=== PATIENT | female | born 1970 | race Caucasian/White ===

== ENCOUNTER → 2023-10-02 00:56 | Outpatient (REF) | payer BC, SELFPAY ==
[2023-10-02 02:13] LABS: % Basophils 0.7 % (0-2); % Eosinophils 2.1 % (0-6); % Immature Granulocytes 0.2 % (0-0.5); % Lymphocytes 29.5 % (20.5-51.1); % Monocytes 5.9 % (1.7-9.3); % Neutrophils 61.6 % (42.2-75.2); Absolute Basophils 0.1 10^3/uL (0-0.2); Absolute Eosinophils 0.2 10^3/uL (0-0.7); Absolute Lymphocytes 2.5 10^3/uL (1.2-3.4); Absolute Monocytes 0.5 10^3/uL (0.1-0.6); Absolute Neutrophils 5.2 10^3/uL (1.4-6.5); Hematocrit 40.6 % (37.0-47.0); Hemoglobin 13.1 g/dL (12.0-16.0); Mean Corp Hgb Conc. 32.3 g/dL (33.0-37.0); Mean Corpuscular Hgb 24.7 pg (27.0-31.0); Mean Corpuscular Volume 76.5 fL (81.0-99.0); Mean Platelet Volume 9.9 fL (7.4-10.4); Nucleated Red Blood Cells % 0 %; Platelet Count 279 10^3/uL (130-400); Red Blood Cell Count 5.31 10^6/uL (4.20-5.40); White Blood Cell Count 8.5 10^3/uL (4.8-10.8)
[2023-10-02 02:53] LABS: ALT (SGPT) 21 U/L (0-35); AST (SGOT) 24 U/L (14-36); Albumin 4.7 g/dl (3.5-5.0); Alkaline Phosphatase 122 U/L (38-126); Blood Urea Nitrogen 19 mg/dl (7-17); Carbon Dioxide 24 mmol/L (22-30); Chloride 106 mmol/L (98-107); Glucose 101 mg/dl (70-99); HDL Cholesterol 61 mg/dl; Iron 36 ug/dl (37-170); LDL Cholesterol, Calculated 113 mg/dl; Potassium 4.4 mmol/L (3.5-5.1); Sodium 140 mmol/L (135-145); Total Bilirubin 0.5 mg/dl (0.2-1.3); Total Cholesterol 205 mg/dl (50-199); Total Protein 7.4 g/dl (6.3-8.2); Triglyceride 155 mg/dl (10-149); Very Low Density Lipoprotein 31 mg/dl (0-30); eGFR > 60.00
[2023-10-02 03:02] LABS: Percent Saturation 9 % (20-50); Total Iron Binding Capacity 382 ug/dl (265-497)
[2023-10-02 03:11] LABS: Free T4 1.01 ng/dl (0.78-2.19)
[2023-10-02 03:24] LABS: TSH 1.49 uIU/ml (0.47-4.68)
[2023-10-02 03:28] LABS: Ferritin 5.1 ng/ml (11.1-264.0)
[2023-10-02 03:38] LABS: Vitamin D, 25-OH*** 23.4 ng/mL (30-80)
[2023-10-02 04:00] LABS: Folate 9.5 ng/ml (2.76-20); Vitamin B12 241 pg/ml (239-931)
== END ==
LOC: REG 00:56
PROVIDERS: ATTENDING PHYSICIAN Nurse Practitioner Family
DX: C44.519 Basal cell carcinoma of skin of other part of trunk (principal); K58.2 Mixed irritable bowel syndrome; I10 Essential (primary) hypertension; D50.9 Iron deficiency anemia, unspecified; G43.901 Migraine, unspecified, not intractable, with status migrainosus; E78.2 Mixed hyperlipidemia; E55.9 Vitamin D deficiency, unspecified
CPT/HCPCS: 80053; 80061; 82306; 82607; 82728; 82746; 83540; 83550; 84439; 84443; 85025

== ENCOUNTER → 2023-11-14 02:09 | Outpatient (REF) | payer BC, SELFPAY ==
[2023-11-14 02:28] LABS: Erythrocyte Sed Rate 9 mm/hour (0-20)
[2023-11-14 02:31] LABS: % Basophils 0.9 % (0-2); % Eosinophils 1.5 % (0-6); % Immature Granulocytes 0.7 % (0-0.5); % Lymphocytes 18.7 % (20.5-51.1); % Monocytes 6.6 % (1.7-9.3); % Neutrophils 71.6 % (42.2-75.2); Absolute Basophils 0.1 10^3/uL (0-0.2); Absolute Eosinophils 0.1 10^3/uL (0-0.7); Absolute Immature Granulocytes 0.1 10^3/uL (0-0.05); Absolute Lymphocytes 1.4 10^3/uL (1.2-3.4); Absolute Monocytes 0.5 10^3/uL (0.1-0.6); Absolute Neutrophils 5.3 10^3/uL (1.4-6.5); Hematocrit 44.1 % (37.0-47.0); Hemoglobin 14.7 g/dL (12.0-16.0); Mean Corp Hgb Conc. 33.3 g/dL (33.0-37.0); Mean Corpuscular Hgb 26.4 pg (27.0-31.0); Mean Corpuscular Volume 79.3 fL (81.0-99.0); Mean Platelet Volume 10.6 fL (7.4-10.4); Nucleated Red Blood Cells % 0 %; Platelet Count 245 10^3/uL (130-400); Red Blood Cell Count 5.56 10^6/uL (4.20-5.40); Red Cell Dist. Width 18.9 % (11.5-14.5); White Blood Cell Count 7.4 10^3/uL (4.8-10.8)
[2023-11-14 02:35] LABS: ALT (SGPT) 24 U/L (0-35); AST (SGOT) 25 U/L (14-36); Albumin 4.5 g/dl (3.5-5.0); Alkaline Phosphatase 139 U/L (38-126); Blood Urea Nitrogen 12 mg/dl (7-17); Calcium 9.6 mg/dl (8.4-10.2); Carbon Dioxide 23 mmol/L (22-30); Chloride 106 mmol/L (98-107); Glucose 107 mg/dl (70-99); Potassium 4.2 mmol/L (3.5-5.1); Sodium 140 mmol/L (135-145); Total Bilirubin 0.5 mg/dl (0.2-1.3); Total Protein 7.2 g/dl (6.3-8.2); Urine Albumin Negative (Neg - Trace); Urine Bilirubin Negative (Negative); Urine Character Slightly Cloudy (Clear); Urine Color Yellow; Urine Glucose Negative (Negative); Urine Ketone Trace (Negative); Urine Leukocyte Trace (Negative); Urine Nitrite Negative (Negative); Urine Occult Blood Negative (Negative); Urine Specific Gravity 1.025 (<1.030); Urine Urobilinogen Negative (Neg - 1+); eGFR > 60.00
[2023-11-14 02:38] LABS: C-Reactive Protein < 5.00 mg/L (0.0-10.00)
[2023-11-14 02:40] LABS: Urine Protein < 5 mg/dl
[2023-11-14 02:47] LABS: Urine Bacteria Few (Negative); Urine Red Blood Cell 0-2 /HPF (0-2)
[2023-11-15 00:15] LABS: Complement C3 135 mg/dl (88-165)
[2023-11-15 14:21] LABS: Rheumatoid Agglutinin Positive (<10 IU)
[2023-11-15 14:47] LABS: Rheumatoid Agg. Semi-quant 1024 IU
[2023-11-16 01:00] LABS: ANA, IgG Reflex to HEp-2 None Detected (None Detected)
[2023-11-16 02:01] LABS: CCP Antibody IgG/IgA 3 Units (0-19)
[2023-11-16 11:37] LABS: SSA 52 (Ro)(ENA) Ab, IgG 2 AU/mL (0-40); SSA 60 (Ro)(ENA) Ab, IgG 0 AU/mL (0-40); SSB (La)(ENA) Ab, IgG 26 AU/mL (0-40)
== END ==
LOC: CLAB 02:09
PROVIDERS: ATTENDING PHYSICIAN Internal Medicine
DX: G50.0 Trigeminal neuralgia (principal); M35.00 Sjogren syndrome, unspecified; R76.8 Other specified abnormal immunological findings in serum; R90.82 White matter disease, unspecified
CPT/HCPCS: 80053; 81003; 81015; 82570; 84156; 85025; 85652; 86038; 86140; 86160; 86200; 86235; 86430; 86431

== ENCOUNTER → 2023-12-28 07:34 | Outpatient (REF) | payer BC, SELFPAY | LOC: MRI 3T 07:34 | PROVIDERS: ATTENDING PHYSICIAN Internal Medicine; FAMILY PHYSICIAN Internal Medicine | DX: R90.82 White matter disease, unspecified (principal) | CPT/HCPCS: 70553; A9575 ==

== ENCOUNTER → 2024-06-23 01:12 | Outpatient (REF) | payer BC, SELFPAY ==
[2024-06-23 01:28] LABS: % Basophils 0.7 % (0-2); % Eosinophils 1.7 % (0-6); % Immature Granulocytes 0.7 % (0-0.5); % Monocytes 5.5 % (1.7-9.3); % Neutrophils 71.4 % (42.2-75.2); Absolute Basophils 0.1 10^3/uL (0-0.2); Absolute Eosinophils 0.1 10^3/uL (0-0.7); Absolute Immature Granulocytes 0.1 10^3/uL (0-0.05); Absolute Lymphocytes 1.7 10^3/uL (1.2-3.4); Absolute Monocytes 0.5 10^3/uL (0.1-0.6); Hematocrit 45.9 % (37.0-47.0); Hemoglobin 14.7 g/dL (12.0-16.0); Mean Corpuscular Hgb 26.9 pg (27.0-31.0); Mean Corpuscular Volume 83.9 fL (81.0-99.0); Mean Platelet Volume 9.3 fL (7.4-10.4); Nucleated Red Blood Cells % 0 %; Platelet Count 244 10^3/uL (130-400); Red Blood Cell Count 5.47 10^6/uL (4.20-5.40); Red Cell Dist. Width 15.8 % (11.5-14.5); White Blood Cell Count 8.4 10^3/uL (4.8-10.8)
[2024-06-23 01:47] LABS: Erythrocyte Sed Rate 10 mm/hour (0-20)
[2024-06-23 01:56] LABS: ALT (SGPT) 21 U/L (0-35); AST (SGOT) 21 U/L (14-36); Albumin 4.9 g/dl (3.5-5.0); Alkaline Phosphatase 118 U/L (38-126); Blood Urea Nitrogen 18 mg/dl (7-17); Carbon Dioxide 26 mmol/L (22-30); Chloride 104 mmol/L (98-107); Glucose 112 mg/dl (70-99); HDL Cholesterol 57 mg/dl; LDL Cholesterol, Calculated 103 mg/dl; Potassium 4.8 mmol/L (3.5-5.1); Sodium 140 mmol/L (135-145); Total Bilirubin 0.8 mg/dl (0.2-1.3); Total Cholesterol 189 mg/dl (50-199); Total Protein 7.5 g/dl (6.3-8.2); Triglyceride 147 mg/dl (10-149); Very Low Density Lipoprotein 29 mg/dl (0-30); eGFR > 60.00
[2024-06-23 01:57] LABS: C-Reactive Protein < 5.00 mg/L (0.0-10.00)
[2024-06-23 02:01] LABS: Complement C3 133 mg/dl (88-165)
[2024-06-23 02:28] LABS: Urine Albumin 1+ (Neg - Trace); Urine Bilirubin Negative (Negative); Urine Character Slightly Cloudy (Clear); Urine Color Yellow; Urine Glucose Negative (Negative); Urine Ketone Negative (Negative); Urine Leukocyte 3+ (Negative); Urine Nitrite Negative (Negative); Urine Occult Blood Negative (Negative); Urine Specific Gravity 1.025 (<1.030); Urine Urobilinogen Negative (Neg - 1+)
[2024-06-23 02:28] LABS: TSH Reflex To Free T4 1.36 uIU/ml (0.47-4.68)
[2024-06-23 03:17] LABS: Urine Red Blood Cell 0-2 /HPF (0-2)
[2024-06-23 03:57] LABS: Urine Protein < 5 mg/dl
[2024-06-23 09:28] LABS: Vitamin D, 25-OH*** 18.9 ng/mL (30-80)
== END ==
LOC: REG 01:12
PROVIDERS: ATTENDING PHYSICIAN Internal Medicine
DX: M06.4 Inflammatory polyarthropathy (principal); Z51.81 Encounter for therapeutic drug level monitoring; M35.00 Sjogren syndrome, unspecified; M32.9 Systemic lupus erythematosus, unspecified
CPT/HCPCS: 80053; 80061; 81003; 81015; 82306; 82570; 84156; 84443; 85025; 85652; 86140; 86160; 87086

== ENCOUNTER 2024-09-17 10:03 | Inpatient (IN) | payer BC, SELFPAY ==
[2024-09-16 17:56] VITALS: BP 176/90
--- NOTE | 2024-09-16 19:25 | ED.GENMED ---
History of Present Illness
General
Chief Complaint: Eye Problems
Source: patient
Exam Limitations: none
Time Seen by Provider: 09/16/24 19:11
History of Present Illness
History of Present Illness:
See MDM
Past History
Past History
ED Past Medical History: None
ED Past Surgical History: Appendectomy and Gynecological (2 lump-ectomy)
Social History
Tobacco: Non-smoker
Alcohol: None
Drug: None
Employment: Employed
Phy Exam
Physical Exam
Physical Exam:
See MDM
Course
Orders/Labs/Results
Orders:
Orders
09/16/24 Dinner
Regular
At Your Request: Full Participation
09/16/24 19:22
CT Head W/o Iv Contrast Urgent
Comment:
Reason For Exam: headache, left eye pain
09/16/24 19:28
Visual Acuity- Treatment ONCE
09/16/24 19:59
CRP [C-Reactive Protein] Urgent
Complete Blood Count/With Diff Urgent
Comprehensive Metabolic Panel Urgent
ESR [Erythrocyte Sed Rate] Urgent
09/16/24 21:14
MethylPREDNISolone. [Solu-Medrol] 1,000 mg 0.9% Sodium Chloride 250 ml [Nss] 250 ml IV NOW
09/16/24 22:00
Flush (0.9% Sodium Chloride) [Flush (Nss)] See Dose Instructions IV PER PROTOCOL
09/16/24 22:13
Admit/Transfer Patient As Directed
Co-Sign Provider:
Level of Care: Observation services
Assign to:: Medical/Surgical
Physician / Group: [facility]
Diagnosis: Left eye blurriness
PRN Pain Medication Management As Directed
May give lesser potent ordered pain med per pt: Yes
preference::
Protocol:: Medication orders for pain may be administered in a
manner that supports deferring to patient preference
when the pt is:
- Requesting an ordered lesser potent pain medication.
Least to most potent pain medications are defined
as: acetaminophen < NSAID < tramadol < opioids
(morphine, oxycodone, hydromorphone).
- Requesting a lesser dose of the same medication IF
ORDERED.
- Requesting a less intrusive route of administration
if both routes are prescribed by the provider (PO <
IV).
09/16/24 22:14
Code Status As Directed
Resuscitation Status: Full Code
09/16/24 23:29
Acetaminophen [Tylenol] 650 mg PO Q4HPRN PRN
Bisacodyl [Dulcolax] 10 mg RECTAL [id number] PRN
Docusate W/Senna [Senokot-S] 1 tablet PO BIDPRN PRN
Ondansetron Injectable [Zofran] 4 mg IV Q6HPRN PRN
Polyethylene Glycol Powder [Miralax] 17 grams PO DAILYPRN PRN
09/16/24 23:29
NEUROLOGY CONSULT Routine
Consulting Provider: Ej Bustillo
Was physician already notified: Yes
Activity As Directed
Activity Level: As Tolerated
Neurological Checks As Directed
Frequency: q4h
Pneumatic Compression Sleeves As Directed
Type: Knee high
Vital Signs As Directed
Frequency: Per unit guidelines
Pulse Ox/spot Check [RESP] Routine
Quantity: 1
DX Deep Vein Thrombosis Video Routine
09/17/24 06:51
MR Brain W/o & With Contrast Routine
Reason For Exam: eval optic neuritis, ms
Recent pill cam endoscopy?: No
09/17/24 06:54
Basic Metabolic Panel IN AM
Complete Blood Count/No Diff IN AM
Ferritin Routine
Comment: ADD ON
Folate Routine
Comment: ADD ON
Free T4 Routine
Iron Routine
Comment: ADD ON
Magnesium IN AM
TSH Reflex To Free T4 Routine
Comment: ADD ON
Total Iron Binding Routine
Comment: ADD ON
Vitamin B12 Routine
Comment: ADD ON
09/17/24 07:05
Add On- LAB Routine
Tests Added?: iron, TIBC, ferrtin
09/17/24 07:13
Cervical Spine Without & W [MR Cervical Spine Without & W] Routine
Comment:
Reason For Exam: vision changes, Hx of possible MS
Recent pill cam endoscopy?: No
09/17/24 09:17
Lorazepam [Ativan] 1 mg PO ONCE
09/17/24 09:24
Add On- LAB Routine
Comments:: Please add to today's labs or draw as routine
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
09/17/24 10:00
Ergocalciferol [Drisdol (Vitamin D2)] 50,000 units PO Q7D
09/17/24 10:30
Cholecalciferol (Vitamin D3) [VITAMIN D3 (cholecalciferol)] 125 mcg PO DAILY
09/17/24 11:00
Cyanocobalamin [Vitamin B-12] 1,000 mcg PO DAILY
MethylPREDNISolone. [Solu-Medrol] 1,000 mg 0.9% Sodium Chloride 250 ml [Nss] 250 ml IV Q24H
09/17/24 16:00
Gabapentin [Neurontin] 300 mg PO TID
Abnormal Lab Results
09/16/24 09/17/24
19:59 06:54
MCV 79.6 L fL 80.0 L fL
(81.0-99.0) (81.0-99.0)
MCH 25.2 L pg 25.3 L pg
(27.0-31.0) (27.0-31.0)
MCHC 31.6 L g/dL 31.6 L g/dL
(33.0-37.0) (33.0-37.0)
Lymphocytes % 18.9 L %
(20.5-51.1)
Chloride 110 H mmol/L 111 H mmol/L
(98-107) (98-107)
Glucose 108 H mg/dl 196 H mg/dl
(70-99) (70-99)
Iron 26 L ug/dl
(37-170)
% Saturation 6 L %
(20-50)
Ferritin 6.2 L ng/ml
(11.1-264.0)
TSH (Reflex) 0.33 L uIU/ml
(0.47-4.68)
09/17/24 06:54
09/17/24 06:54
Vital Signs
Initial and Last Documented VS:
Initial Vital Signs
Temp Pulse Resp BP Pulse Ox
97.9 F 103 16 176/90 100
09/16/24 17:56 09/16/24 17:56 09/16/24 17:56 09/16/24 17:56 09/16/24 17:56
Last Documented Vital Signs
Temp Pulse Resp BP Pulse Ox
98 F 85 20 145/77 96
09/18/24 23:43 09/18/24 23:43 09/18/24 23:43 09/18/24 23:43 09/18/24 23:43
MDM/Problems Addressed
Differential Diagnosis Includes:
HPI and MDM Narrative:
54-year-old female presenting for evaluation of left eye irritation. She noticed this a few days ago. This is associated with left temporal pain as well. She has dealt with migraines and right religious pain before but this was attributed to
trigeminal neuralgia. Patient was concerned because she is now noticing that her left eye is dilated. She was having trouble focusing while reading.
Patient is sitting in bed comfortably but she does have an obvious dilated pupil to the left. She also has mild tenderness to her left religious area.
I did question MS but patient states she saw an MS specialist and her symptoms were dismissed. However, she does acknowledge this was many years ago. Since this, she has had multiple bizarre neuro complaints.
She has had prior MRIs showing nonspecific findings
On exam, she does have an afferent pupillary defect to the left.
Will obtain ESR and CRP and obtain CT.
Physical exam
General: Well appearing and non-toxic
HEENT: protecting airway. Right pupil 2 mm. Left pupil 5 mm. EOMI. No proptosis. Afferent pupillary defect noted to the left. Mild tenderness to palpation of left religious
Neck: appears supple
CV: No evidence of cyanosis
Resp: No accessory muscle use
Abd: Non-distended
Extremities: No deformities
Neuro: alert
Psych: Normal affect
Skin: Intact
Problems Addressed including Acute and Chronic Conditions affecting care:
1. Left eye irritation
Acuity: acute
Prognosis: stable
Details: No complaint, will obtain CT head. Will obtain visual acuity and will obtain ESR and CRP. Will consider high-dose of steroids with concern for MS versus temporal arteritis
Updates
Per nursing, bilateral vision 20/75. Right eye 20/25. Left eye 20/60
ESR and CRP negative which makes temporal arteritis less likely. Given concern for optic neuritis and possible MS, will write for 1 g of IV methylprednisone
Differential Diagnosis (but not limited to): Temporal arteritis, MS, optic neuritis
Testing considered: MR
Drug therapy (if applicable): OTC meds, please see d/c instruction regarding Rx drugs
Amount and/or Complexity of Data Reviewed
Clinical info obtained from: Patient
External data reviewed: MRI last year showed nonspecific finding
Labs I independently reviewed (but not limited to): White blood cell count normal
Radiology: The CT scan was personally and independently reviewed. In addition, official CT report reviewed.
Pulse Ox: not hypoxic
EKG independently reviewed: N/A
Director Of District Office: N/A
Critical Care: N/A
Risk of Complication:
Social Determinants of health: Good social support
Discussed with other providers: Hospitalist
Escalation of Care includes Admit/Obs: Given the concern for optic neuritis, will admit for high-dose IV steroid
Occasional wrong word or 'sound a like' substitutions may have occurred due to the inherent limitations of voice recognition software. Read the chart carefully and recognize, using context, where substitutions have occurred.
*Critical Care Note
Total Time (30-74mins, 75-104mins- exclusive of procedures): Not Applicable
ED Attending Note
-
Portions of this chart may have been created with voice recognition software.� Occasional wrong word or��sound alike� substitutions may have occurred due to the inherent limitations of voice recognition software.
Discharge Plan
Departure
Patient Disposition: Admit
Date of Disposition: 09/16/24
Time of Disposition: 21:11
Admit to: Med/Surg
Presentation/result/management discussed w/ accepting MD/DO: Hospitalist
Discharge Problem:
Optic neuritis, left
Interventions
Interventions:
*Risk Screen - Suicide Last Done: 09/16/24 17:59
*General Assessment Last Done: 09/16/24 19:55
*Neglect/Abuse Screening Last Done: 09/16/24 17:59
*ED- Fall Risk Assessment Last Done: 09/16/24 19:55
*ED COVID-19 Vaccine History Last Done: 09/16/24 19:55
*Nursing Disposition Last Done: 09/16/24 23:25
Discharge Date and Time
Discharge Date/Time: 09/16/24 23:25
[2024-09-16 19:39] VITALS: BMI 33.5
[2024-09-16 20:07] VITALS: BP 143/74
[2024-09-16 20:20] LABS: % Basophils 1.1 % (0-2); % Eosinophils 1.6 % (0-6); % Immature Granulocytes 0.5 % (0-0.5); % Lymphocytes 18.9 % (20.5-51.1); % Monocytes 6.9 % (1.7-9.3); Absolute Basophils 0.1 10^3/uL (0-0.2); Absolute Eosinophils 0.1 10^3/uL (0-0.7); Absolute Lymphocytes 1.2 10^3/uL (1.2-3.4); Absolute Monocytes 0.4 10^3/uL (0.1-0.6); Absolute Neutrophils 4.4 10^3/uL (1.4-6.5); Hematocrit 38.3 % (37.0-47.0); Hemoglobin 12.1 g/dL (12.0-16.0); Mean Corp Hgb Conc. 31.6 g/dL (33.0-37.0); Mean Corpuscular Hgb 25.2 pg (27.0-31.0); Mean Corpuscular Volume 79.6 fL (81.0-99.0); Mean Platelet Volume 9.8 fL (7.4-10.4); Nucleated Red Blood Cells % 0 %; Platelet Count 289 10^3/uL (130-400); Red Blood Cell Count 4.81 10^6/uL (4.20-5.40); Red Cell Dist. Width 13.8 % (11.5-14.5); White Blood Cell Count 6.2 10^3/uL (4.8-10.8)
[2024-09-16 20:32] LABS: ALT (SGPT) 15 U/L (0-35); AST (SGOT) 17 U/L (14-36); Albumin 4.7 g/dl (3.5-5.0); Alkaline Phosphatase 99 U/L (38-126); Blood Urea Nitrogen 13 mg/dl (7-17); Calcium 9.5 mg/dl (8.4-10.2); Carbon Dioxide 24 mmol/L (22-30); Chloride 110 mmol/L (98-107); Estimated Creatinine Clearance 72 ml/min; Glucose 108 mg/dl (70-99); Potassium 4.8 mmol/L (3.5-5.1); Sodium 140 mmol/L (135-145); Total Bilirubin 0.5 mg/dl (0.2-1.3); Total Protein 7.3 g/dl (6.3-8.2); eGFR > 60.00
[2024-09-16 20:35] LABS: Erythrocyte Sed Rate 16 mm/hour (0-20)
[2024-09-16 21:00] VITALS: BP 143/74
[2024-09-16 22:00] VITALS: BP 142/71
--- NOTE | 2024-09-16 22:06 | HPS.HSE ---
Family Physician
-
Family Physician: Zahra Palencia
Chief Complaint
-
Left eye blurriness and pain
History of Present Illness
This is a 51-year-old who presents to the emergency department with left eye symptoms.
She said the symptoms started actually about 4 days ago. She arose and noted some pain behind the left eye. She also saw that pupils were asymmetrical in dilation. When she tried to read screen she had some blurry vision as well as some double
vision. The symptoms persisted over the last few days. She denies any focal neurological deficits. She denies facial asymmetry, facial droop, numbness tingling or weakness.
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 She has no prior history of MS. She denied history of CAD or CVA. She denies any history of hyperlipidemia.
In the emergency department she was afebrile, blood pressure of 140/70 with a pulse of 103 and she was satting 98% on room air.
CBC was unremarkable stop electrolytes BUN/creatinine were normal. ESR was negative.
CT of the head shows no acute intracranial process.
Medical History
Past Medical History
Past Medical History: Reports Other (Trigeminal neuralgia)
Past Surgical History: Reports Other (Exploratory laparotomy)
Social History
Tobacco: Non-smoker
Alcohol: Occasional
Drug: None
Personal:
Living: With Family
Employment: Employed
Family History
Family History: Not pertinent
Allergies / Home Medications
Allergies reflects when Allergies were last updated in [employer].
Home Medications with original date entered in [employer]
Allergy/Medication List:
Allergies
Allergy/AdvReac Type Severity Reaction Status Date / Time
No Known Allergies Allergy Verified 03/22/21 02:30
Home Medications
meclizine 25 mg tablet 25 mg PO QIDPRN PRN dizziness or nausea #30 tabs 03/22/21
Review of Systems
-
Constitutional: Reports No Symptoms
EENT: Reports Other (blurry vision, left eye pain)
Respiratory: Reports No Symptoms
Cardiac: Reports No Symptoms
Abdomen/GI: Reports No Symptoms
: Reports No Symptoms
Musculoskeletal: Reports No Symptoms
Skin: Reports No Symptoms
Neurological: Reports No Symptoms
Endocrine: Reports No Symptoms
Hematologic/Lymphatic: Reports No Symptoms
Psych: Reports No Symptoms
Physical Exam
Vital Signs
Vital Signs
Temp Pulse Resp BP Pulse Ox
97.9 F 103 16 143/74 97
09/16/24 17:56 09/16/24 17:56 09/16/24 17:56 09/16/24 20:07 09/16/24 20:30
Physical Exam
General: Well Developed, Well Nourished and No Apparent Distress
HEENT: NormoCephalic, Moist mucous membranes, Atraumatic and Other (Asymmetrical pupillary dilation, left eye markedly dilated relative to the right, there is reaction bilaterally equally but reduced constriction in the left eye to light)
Respiratory: Clear
Cardiac: S1/S2 and Regular Rhythm; No Murmur or Rub
GI: Soft, Non Tender, Non Distended and Normal Bowel Sounds; No Organomegaly
Rectal: Deferred by Provider
Musculoskeletal: No Clubbing, No Cyanosis and No Edema
Skin: No Rash
Neuro: Nonfocal/grossly intact
Laboratory Results
-
09/16/24 19:59
09/16/24 19:59
Laboratory Results
Total Bilirubin 0.5 mg/dl (0.2-1.3) 09/16/24 19:59
AST 17 U/L (14-36) 09/16/24 19:59
ALT 15 U/L (0-35) 09/16/24 19:59
Alkaline Phosphatase 99 U/L (38-126) 05/27/25 19:59
Data Reviewed
-
CT Scan: Report Reviewed by me
Lab Data: Labs Reviewed by me
Old Records: Reviewed
Impression/Plan
-
IMPRESSION:
51-year-old female with past medical history of trigeminal neuralgia on the right V1 V2 distribution presents to the emergency department with left eye pain, blurriness and found to have left eye pupillary dilation without any conjunctivitis,
foreign body sensation, tearing or signs of acute infection. Patient has no periorbital edema. CT of the head was negative. She has history of elevated RF but no specific rheumatological diagnosis yet.
PLAN:
1. Left Eye Pain and visual loss -no evidence of acute stroke, ESR is negative so unlikely temporal arteritis, possible MS/optic neuritis
-Admit to MedSurg
-MRI brain with gadolinium
-MRI C-spine
- Inflammatory markers neurology
- 1 g IV Solu-Medrol started, repeated dosing prior findings on MRI and neurology recommendation
- Possible LP per neurology
- Pain control
- Neurochecks every 8
DVT prophylaxis with SCDs
CODE STATUS�full code
[2024-09-16] MEDS: SOLU-MEDROL 258 MG IV (22:10)
[2024-09-16] MEDS: FLUSH (NSS) 1 FLUSH IV (22:11)
[2024-09-16 23:00] VITALS: BP 140/80
--- NOTE | 2024-09-16 23:45 | PTCARENOTE ---
Pt recieved from ED via stretcher at 2345. Pt AAOx3, VSS, and able to ambulate into room. Pt receptive to room and call jenkins. Pt bed in lowest position and call jenkins within reach. pt educated on importance of call jenkins usage, pt relays understanding
and cooperation. Pt complains of mild 3/1o pressure pain in her Left eye. Refused pain medications at this time. Will continue with current plan of care.
[2024-09-16 23:52] VITALS: BP 138/81; BMI 33.0
[2024-09-17 07:25] VITALS: BP 143/77
[2024-09-17 07:28] LABS: Hematocrit 39.9 % (37.0-47.0); Hemoglobin 12.6 g/dL (12.0-16.0); Mean Corp Hgb Conc. 31.6 g/dL (33.0-37.0); Mean Corpuscular Hgb 25.3 pg (27.0-31.0); Mean Platelet Volume 10.1 fL (7.4-10.4); Platelet Count 283 10^3/uL (130-400); Red Blood Cell Count 4.99 10^6/uL (4.20-5.40); Red Cell Dist. Width 13.8 % (11.5-14.5); White Blood Cell Count 6.9 10^3/uL (4.8-10.8)
[2024-09-17 07:57] LABS: Blood Urea Nitrogen 12 mg/dl (7-17); Calcium 9.6 mg/dl (8.4-10.2); Carbon Dioxide 22 mmol/L (22-30); Chloride 111 mmol/L (98-107); Estimated Creatinine Clearance 81 ml/min; Glucose 196 mg/dl (70-99); Iron 26 ug/dl (37-170); Potassium 4.5 mmol/L (3.5-5.1); Sodium 140 mmol/L (135-145); eGFR > 60.00
[2024-09-17 08:05] LABS: Percent Saturation 6 % (20-50); Total Iron Binding Capacity 384 ug/dl (265-497)
--- NOTE | 2024-09-17 08:27 | CON.NEURO ---
Neuro Assessment/Plan
Assessment
Acute onset left eye visual change
With prior history of mild MRI changes of the brain and intractable migraine. Differential diagnosis includes optic neuritis
Plan
Outpatient ophthalmology evaluation
Agree with MRI of brain and cervical spine with and without contrast
Provide additional high dose steroids, methylprednisolone 1 g IV based on future imaging, either 3 or 5 total doses; monitor for hypertension and hyperglycemia
Start vitamin D as the patient had low levels previously.
Start vitamin B12 as the patient had low levels previously
Check antibodies for neuromyelitis optica spectrum disorder and MOGAD
Occupational therapy evaluation
Consider alternative medication to the use of gabapentin which is been helpful for the patient's recurrent head pains in the form of pregabalin
Will follow
Consultation
Order
Date of Consultation: 09/17/24
Requesting Provider: Hospitalists
Reason for Consult: Visual loss
Subjective/Objective
Subjective Data
Date of Service: September 17, 2024
Adapted from our outpatient records:
' 51-year-old female presents for evaluation for right head pressure. She was referred by Dr. Ewing. She states that she began having right temporal head pressure that has moved anteriorly over time. She states that 'it feels like very severe
pressure that is so bad it could break her nose.' She denies associated vomiting or photophobia but has associated phonophobia and nausea. She also complains of visual aura consisting of 'flickering in her right eye.' She also feels that her speech
slows down during these events and she feels that 'she sounds like she is drunk.' The head pressure is about a 6 out of 10 in terms of severity. She has these events every day and they can last all day. It is worse while driving. She has no family
history of migraine or cerebral aneurysm. She has taken a steroid Dosepak without good results. She takes Motrin as an abortive therapy and has tried a dose of her 's Maxalt medication which was not helpful. She has no prior history of
headache. These events were preceded by an episode of head trauma. She was standing on a parking block when she fell backwards and hit the back of her head and may have lost consciousness. She states that she has also been worked up for dizziness
and imbalance. She is seen to ENT specialist and also did vestibular therapy without good results. She describes this as feeling that 'everything is on a tilt and she feels as if there is a hand on her head pushing her down.'
She had a head CT done on March 22, 2021 which showed no acute intracranial process and was within the limits of normal. She was seen for dizziness in the [place] emergency department on that date. She had an MRI of the brain done with
and without contrast on May 10, 2021 which was read as normal. A 5 mm focus of T2/FLAIR hyperintense signal was seen in the white matter adjacent to the right frontal horn that was felt to be of doubtful clinical significance.
Evaluations with Irma Dan:
'(06/15/2021)
Pt seen today in the office. Pt reports that she tried Ubrelvy and was not helpful. She also reports she tried Nurtec which was very helpful. She had no adverse side effects from medication. She feels that although it works she still is
having daily headaches. She states that the Nurtec helps both the dizziness and pressure. We have not yet received records from ENT.
(08/31/2021)
Pt seen in the office today. Pt reports she still has significant daily headaches and is taking Compazine, Benaryl and Motrin mulitple times a day. She reports Nurtec is not helping her. She was trying to take it every other day. She has no
new symptoms. She continues to have right sided head pressure.
(11/02/2021)
Pt seen in the office today. Pt reports very mild improvement of headaches since starting Emgality. She has now had loading dose and 1 additional dose. She feels ok. to continue at this time, she knows it can take up to 3 doses to have
improvement.'
11/30/21: She continues to have daily head pressure with visual aura despite trying several medications including Emgality, Nurtec every other day and riboflavin as migraine preventatives. A steroid Dosepak was not helpful. She is also tried
Ubrelvy as abortive therapy which was not helpful. She is interested in trying Botox. She is due for a follow-up MRI brain as well.
(01/04/2022)
Patient seen in the office today with her . Patient reports she still has unchanged right daily head pressure, severe at times. Reports 'she feels if her nose would break pressure might resolve.' Reyvow was not helpful as it caused
muscle aches. She did not do the IV infusion. We are waiting for approval for Botox. She did have MRI of the brain completed on 12/28/2021 that showed nonspecific mild white matter signal alteration. These are more prominent than previously noted.
Today (03/21/2022)
Patient seen in the office today. Patient did receive her first dose of Botox. She had no adverse side effects of medication. She does report her headaches are at least 10% better. She reports there were days that she did nto need to take
breaker medications. She does not remember before Botox the last days she did not need medication for headaches. She continues to take Riboflavin. She continues to use Benadryl, Compazine and Motrin as headache breakers.
Assessments
1. Intractable migraine with aura with status migrainosus - G43.111 (Primary)
2. Balance problem - R26.89
3. White matter abnormality on MRI of brain - R90.82
4. History of traumatic head injury - Z87.828
51-year-old female with a pressure-like headache with some migrainous features with status migrainosus. She does have a single white matter abnormality that I think may be related to migraine or her head trauma and I think is much less likely to be
related to something like demyelinating disease, but we will repeat her imaging 6 mos from the initial imaging to evaluate for stability.
Treatment
1. Intractable migraine with aura with status migrainosus
Notes: -Has already tried several meds without good results including: Medrol dose pack, Emgality, Nurtec every other day, Ubrelvy and riboflavin
-can continue Compazine, Motrin and Benadryl as headache breakers, although these are not always helpful
-avoiding any triptan as this may increase her blood pressure and she has a relatively new dx of htn
-Reyvow caused muscle aches only minimal improvement of headaches
-Continue Botox for migraine prevention given lack of efficacy of several other meds
-abnormal MRI brain with more prominent white matter changes-still needs f/u with subspecialist Dr. Faustin--[phone].
2. Balance problem
Notes: -already tried vestibular PT
3. White matter abnormality on MRI of brain
Notes: -previously reviewed MRI brain images
-still need follow up with Dr. Faustin
Follow Up
as scheduled'
Patient underwent botulinum toxin injections until 2022 at which time she was lost to follow-up. As per records, the patient underwent a repeated MRI of the brain in December 2023. MRI of the brain at that time demonstrated small white matter
changes which were not associated with significant variation from the 2 years prior. The patient has been following with rheumatology due to concerns regarding an abnormal NADJA.
Patient returned to this hospital's emergency department after sudden left eye irritation starting 4 days prior to presentation. Patient then noted that she had pain in the back of the eye with reading 1 day later.
Since presentation to this hospital's emergency department, the patient received a single dose of methylprednisolone 1 g IV. Continued discomfort with reading since steroid injections. No loss of vision. [facility] in ED 20/25 on right, left 20/60.
Patient had no change to headaches with Botulinum toxin injections. Met with ENT who ordered RF then to Rheumatology. Then started Gabapentin 300 mg TID, given dx of possible Sjogren's disease. Gabapentin reduces the discomfort to intensity 2/10,
without 7/10, pressure-type.
Was started on Hydroxychloroquine 1 month ago. Was seen by neuro-beading sawyer in 2023 due to right retro-orbital pain previously. No abnormalities.
Objective Data
Vital Signs
Temp Pulse Resp BP Pulse Ox
36.6 C 78 16 143/77 97
09/17/24 07:25 09/17/24 07:25 09/17/24 07:25 09/17/24 07:25 09/17/24 07:25
Lab Results
09/17/24 06:54
09/17/24 06:54
Sodium 140 mmol/L (135-145) 09/17/24 06:54
Potassium 4.5 mmol/L (3.5-5.1) 09/17/24 06:54
BUN 12 mg/dl (7-17) 09/17/24 06:54
Glucose 196 mg/dl (70-99) H 09/17/24 06:54
Calcium 9.6 mg/dl (8.4-10.2) 09/17/24 06:54
Patient Allergies
No Known Allergies Allergy (Verified 03/22/21 02:30)
Review of Systems
-
History Source: Patient
All other systems: Reviewed and negative
EENT: Negative Swallowing Difficulty
Respiratory: Negative Trouble Breathing
Cardiac: Negative Chest Pain
Abdomen/GI: Negative Incontinence of Stool
Genitourinary: Negative Incontinence
Musculoskeletal: Negative Back Pain or Neck Pain
Neuro: Negative Dizzy
Physical Exam
-
General: No Apparent Distress and Appears Stated Age
Eyes: Round OU, [place] Conjunctivae and No Ptosis
HEENT: Anicteric and Moist Mucous Membranes
Neck: Full Range of Motion
Respiratory: No Dyspnea
Cardiac: No JVD
GI: Non-distended
Skin: Unremarkable
Extremities: No Clubbing, No Cyanosis and No Edema
Psych: Intact Judgement/Insight
Extended Neurological Exam
Mood & Affect: Mood Unremarkable and Affect Unremarkable
Attention Span & Concentration: Awake, Alert, Interactive and No Difficulty with 2 Step Request
Memory: Unremarkable
Tremor: Hand Tremor Absent and Head Tremor Absent
Speech: Quality Unremarkable and Quantity Unremarkable
Cranial Nerve II: Left Eye: Pupillary Reactivity Unremarkable, Pupillary Size Unremarkable and Visual Ramirez Intact
Cranial Nerve II: Right Eye: Pupillary Reactivity Unremarkable, Pupillary Size Unremarkable, Visual Ramirez Intact and Smaller than Contralateral (By 1 mm)
Cranial Nerves III, IV, : Extraocular Movement: Extraocular Movement Full in all Directions
Cranial Nerve VII: Facial Symmetry: Normal Facial Symmetry
Cranial Nerve VIII: Hearing: Unremarkable Hearing to Normal Conversational Volume
Cranial Nerves IX, X: Palate Movement: Palate Elevation Symmetric
Cranial Nerve XI: Shoulder Shrug: Unremarkable
Cranial Nerve XII: Tongue Protusion: Midline
Muscle Strength, Overall: Full Throughout
Muscle Bulk & Tone: Bulk Unremarkable and Tone Unremarkable
Pronator Drift: No Drift in Upper Extremities
Deep Tendon Reflexes: Trace Throughout
Touch Sensation: Unremarkable
Coordination: Idlepf-ooci-bcazzk Testing Unremarkable
Babinski Sign: Absent Bilaterally
Gait & Station: Negative Wide Based
Data Reviewed
-
Labs: Report Reviewed
Reviewed with: Physician, Patient and Family
Old Records: Summarized
Medications
-
Active Medications
Generic Name Dose Route Start Last Admin
Trade Name Freq PRN Reason Stop Dose Admin
Acetaminophen 650 mg 09/16/24 23:29
Acetaminophen 325 Mg Tablet PO 10/14/24 23:28
Q4HPRN PRN
mild pain/PERKINS/temp> 100.4F
Bisacodyl 10 mg 09/16/24 23:29
Bisacodyl 10 Mg Rectal Suppository RECTAL 10/14/24 23:28
[id number] PRN
constipation
Ondansetron HCl 4 mg 09/16/24 23:29
Ondansetron 4 Mg/2 Ml Vial IV 10/14/24 23:28
Q6HPRN PRN
nausea and vomiting
Polyethylene Glycol 17 grams 09/16/24 23:29
Polyethylene Glycol Powder 17 Grams Packet PO 10/14/24 23:28
DAILYPRN PRN
constipation
Senna/Docusate Sodium 1 tablet 09/16/24 23:29
Docusate W/Senna (Melyssa-Colace) Tablet PO 10/14/24 23:28
BIDPRN PRN
constipation
Sodium Chloride 0 flush 09/16/24 22:00 09/16/24 22:11
Sodium Chloride 0.9% (Flush) Syringe IV 10/14/24 21:59 1 flush
PER PROTOCOL RACHEL Administration
Home Medications
�Medication �Instructions �Recorded
meclizine 25 mg tablet 25 mg PO QIDPRN PRN dizziness or 03/22/21
nausea #30 tabs
--- NOTE | 2024-09-17 10:02 | W.PN.HOSP.TC ---
Today's Communication/Plan
-
See PN
Assessment / Plan
Assessment / Plan
54yo F with PMHX of headaches, that became constant after her head trauma when she fell backwards and hit her head years back. Since then she experienced constant sometimes severe pain over her temporal area radiating to her nose. She was diagnosed
with trigeminal neuralgia and started on Neurontin that was able to take the edge off the pain. She was followed by outpatient neurologist and had multiple botox injections due to concern for migraine, but without relief. Also saw
in [facility] for concerns of MS since her prior MRI brain showed some non-specific mild white matter changes. Patient also follows with control clerk for suspected Sjogrens and was started on HCQ on July 25 2024.
She started to experience blurry vision and pain with accomodation in her L eye appr 4 days before her presentation and on the day of admission noticed that her L pupil was larger. Given Methylprednisolone 1g in ED.
A/P:
#Anisocoria with blurry vision on R
#R/O MS flare, optic neuritis
#Intractabel migraine with status migranosus
Will arrange outpatient ophthalmology follow up
ESR/CRP WNL
Can be side effect of HCQ - will discuss with control clerk if safe to stop, retinal exam upon d/c
Pulse steroids
MRI brain and cervical spine as per neurologist
f/u with subspecialist Dr. Faustin--[phone]
#Hx of vit D deficiency
#Hx of vit B12 deficiency
replete
#Sjogrens
on recent new HCQ
cont outpatient f/u with
#Microcytosis
check iron studies
DVT ppx on hep
Full code
I have spent at least 59min reviewing chart, test results, communication with consultants and providing direct patient care
Anticipated Discharge: 24 - 48 hours
Subjective/Interval History
-
Date of Service: September 17, 2024
Objective Data
-
Labs:
Laboratory Results
09/17/24
06:54
WBC 6.9
Hgb 12.6
Hct 39.9
Plt Count 283
Sodium 140
Potassium 4.5
Chloride 111 H
Carbon Dioxide 22
BUN 12
Creatinine 0.8
Glucose 196 H
Calcium 9.6
Vital Signs:
Vital Signs
Temp Pulse Resp BP Pulse Ox
97.8 F 78 16 143/77 97
09/17/24 07:25 09/17/24 07:25 09/17/24 07:25 09/17/24 07:25 09/17/24 07:25
I&O
09/16/24 09/17/24 09/18/24
06:59 06:59 06:59
Intake Total 220 / 220
Balance 220 / 220
Review of Systems
-
History Source: Patient
All other systems: Reviewed and negative
EENT: Reports Blurry Vision and Eye Pain
Physical Exam
-
General: No Apparent Distress
HEENT: Anicteric, No Ptosis, Nose Appears Normal and Other (minimal anisocoria of L eye)
Respiratory: Clear to Auscultation
Cardiac: Regular Rhythm
Musculoskeletal: No Clubbing, No Cyanosis and No Edema
Skin: Warm; Negative Rash
Neuro: Awake, Alert, Oriented, AO x 3, No Motor Deficits, Nonfocal/Grossly Intact and No Sensory Deficits
Psych: Calm
[2024-09-17 10:26] LABS: TSH Reflex To Free T4 0.33 uIU/ml (0.47-4.68)
[2024-09-17 10:30] LABS: Ferritin 6.2 ng/ml (11.1-264.0)
[2024-09-17 10:51] LABS: Free T4 1.15 ng/dl (0.78-2.19)
[2024-09-17 11:02] LABS: Vitamin B12 288 pg/ml (239-931)
[2024-09-17] MEDS: ATIVAN 1 MG PO (11:08)
[2024-09-17] MEDS: VITAMIN B-12 1000 MCG PO (11:08)
--- NOTE | 2024-09-17 11:08 | CM ---
CM reviewed chart, patient seen bedside with , initial assessment completed. Patient resides with her spouse in a multiple level home, no steps to enter. 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
Patient denies VN/SNF hx. Patient confirms PCP Zahra Palencia, pharmacy [facility], confirms prescription coverage. CM will continue to follow for all discharge planing needs.
Plan; home with spouse, no needs.
[2024-09-17] MEDS: VITAMIN D3 (cholecalciferol) 125 MCG PO (11:09)
[2024-09-17] MEDS: DRISDOL (VITAMIN D2) 50000 UNITS PO (11:22)
[2024-09-17] MEDS: SOLU-MEDROL 258 MG IV (14:00)
[2024-09-17 15:20] VITALS: BP 144/78
[2024-09-17] MEDS: FERRLECIT 110 MG IV (15:30)
--- NOTE | 2024-09-17 16:10 | DOWNTIME ---
There was a [employer] Downtime on 09/17/2024 from 1230 to 09/17/2024 at 1550. Downtime documentation of patient's care, including medication administrations, has been reconciled in the electronic record per guidelines. Refer to the
patient's paper chart under the miscellaneous tab to see printed paper medication records and downtime forms.
[2024-09-17] MEDS: NEURONTIN 300 MG PO ×2 (17:09→21:36)
[2024-09-17 23:35] VITALS: BP 145/85
[2024-09-18 07:35] VITALS: BP 128/85
[2024-09-18] MEDS: VITAMIN D3 (cholecalciferol) 125 MCG PO (08:16)
[2024-09-18] MEDS: NEURONTIN 300 MG PO ×3 (08:16→21:36)
[2024-09-18] MEDS: VITAMIN B-12 1000 MCG PO (08:16)
--- NOTE | 2024-09-18 09:04 | W.PN.NEURO.1 ---
Addendum entered and electronically signed by Ej Bustillo MD 09/18/24 16:57:
Studies reviewed.
I have personally examined the patient. I reviewed and agree with the SVP GROUP DIRECTOR's Note.
My addenda:
Awake, alert, interactive. No acute distress.
Speech intact.
Follows 2-step requests w/o difficulty. No tremor.
Extra-ocular movements grossly intact.
Facial movements full and symmetric. Hearing intact to normal conversational volume.
Normal UE movements bilaterally.
Neck: full ROM.
Chest: no dyspnea
Heart: no JVD
Ext: (-) Clubbing, (-) Cyanosis, (-) Edema
IMPRESSIONS/RECOMMENDATIONS:
Abrupt onset of eye discomfort and visual change involving the left eye. Differential diagnosis includes optic neuritis.
MRI of brain and cervical spine with and without contrast failed to demonstrate enhancement or abnormalities
Due to limited information regarding the patient's symptomatology, perform lumbar puncture
Would continue methylprednisolone for total of 5 doses due to improvement but not resolution of patient's blurred vision
Provide vitamin D, vitamin B12
Start iron supplementation due to profoundly low iron levels
Consider alternative to gabapentin to be assistance to patient's head discomfort
Will continue to follow patient.
Original Note:
Today's Communication / Plan
-
.
Neuro Assessment/Plan
Assessment
Acute onset left eye visual change
With prior history of mild MRI changes of the brain and intractable migraine. Differential diagnosis includes optic neuritis
MRI brain 09/17/24: No acute infarct. Stable small volume white matter leukoaraiosis without enhancement. Nonspecific. Subtle abnormal signal associated with the right optic nerve. No nerve enlargement and no definitive enhancement. Possible
nonspecific inactive demyelination. No definitive or specific abnormality of the left orbital structures.
Cervical Spine MRI 09/17/24: No intrinsic cervical cord signal alteration or abnormal enhancement. Degenerative changes, as detailed above.
Plan
Outpatient neuroophthalmology evaluation
Provide additional high dose steroids as symptoms have improved, methylprednisolone 1 g IV for likely 3 days (today is day 2/3); monitor for hypertension and hyperglycemia
Lumbar puncture pending
Start vitamin D as the patient had low levels previously.
Start vitamin B12 as the patient had low levels previously
Check antibodies for neuromyelitis optica spectrum disorder and MOGAD
Occupational therapy evaluation
Consider alternative medication to the use of gabapentin which is been helpful for the patient's recurrent head pains in the form of pregabalin
Will follow
Subjective/Objective
Subjective Data
Date of Service: September 18, 2024
Patient reports feeling 90% back to normal. She reports that after her dose of steroids yesterday (09/17/24), she took a three hour nap and then woke up with significantly improved vision. She denies any headache, dizziness, speech/swallow
difficulty, numbness, and weakness.
Objective Data
Vital Signs
Temp Pulse Resp BP Pulse Ox
97.8 F 78 18 128/85 97
09/18/24 07:35 09/18/24 07:35 09/18/24 07:35 09/18/24 07:35 09/18/24 07:35
Lab Results
09/17/24 06:54
09/17/24 06:54
Sodium 140 mmol/L (135-145) 09/17/24 06:54
Potassium 4.5 mmol/L (3.5-5.1) 09/17/24 06:54
BUN 12 mg/dl (7-17) 09/17/24 06:54
Glucose 196 mg/dl (70-99) H 09/17/24 06:54
Calcium 9.6 mg/dl (8.4-10.2) 09/17/24 06:54
Vitamin B12 Cancelled 09/17/24 09:21
Patient Allergies
No Known Allergies Allergy (Verified 03/22/21 02:30)
Review of Systems
-
History Source: Patient
EENT: Blurry Vision; Negative Eye Pain
Respiratory: Negative Cough or Trouble Breathing
Cardiac: Negative Chest Pain or Palpitations
Abdomen/GI: Negative Nausea or Vomiting
Skin: Rash (reddened chest/neck)
Neuro: Negative Dizzy, Headache, Weakness, Numbness, Ataxia or Speech Problem
Physical Exam
-
General: Well Developed, Well Nourished and No Apparent Distress
Eyes: No Ptosis and PERRLA
HEENT: Normocephalic and Atraumatic
Neck: Full Range of Motion
Respiratory: No Dyspnea
GI: Non-distended
Skin: Rash (red chest/neck)
Extremities: No Clubbing, No Cyanosis and No Edema
Psych: Unremarkable
Extended Neurological Exam
Mood & Affect: Mood Unremarkable and Affect Unremarkable
Attention Span & Concentration: Awake, Alert, Interactive and No Difficulty with 2 Step Request
Memory: Unremarkable and Able to Recall
Tremor: Hand Tremor Absent and Head Tremor Absent
Involuntary Movement: None
Speech: Quality Unremarkable, Quantity Unremarkable and Rate of Production Unremarkable
Cranial Nerve II: Left Eye: Pupillary Reactivity Unremarkable, Pupillary Size Unremarkable and Visual Ramirez Intact
Cranial Nerve II: Right Eye: Pupillary Reactivity Unremarkable, Pupillary Size Unremarkable and Visual Ramirez Intact
Cranial Nerves III, IV, : Extraocular Movement: Extraocular Movement Full in all Directions
Cranial Nerve V: Facial Sensation: Intact to Light Touch
Cranial Nerve VII: Facial Symmetry: Normal Facial Symmetry
Cranial Nerve VIII: Hearing: Unremarkable Hearing to Normal Conversational Volume
Cranial Nerves IX, X: Palate Movement: Palate Elevation Symmetric
Cranial Nerve XI: Shoulder Shrug: Unremarkable
Cranial Nerve XII: Tongue Protusion: Midline
Muscle Strength, Overall: Full Throughout
Muscle Bulk & Tone: Bulk Unremarkable and Tone Unremarkable
Pronator Drift: No Drift in Upper Extremities and No Drift in Lower Extremities
Cold Sensation: Unremarkable
Vibration Sensation: Unremarkable
Coordination: Xlahio-oleg-fjqwvu Testing Unremarkable
Data Reviewed
-
CT Head: Report Reviewed and Image Reviewed
MRI Head: Report Reviewed and Image Reviewed
MRI Cervical Spine: Report Reviewed and Image Reviewed
Labs: Report Reviewed
Reviewed with: Physician and Patient
[2024-09-18 10:03] LABS: % Basophils 0.1 % (0-2); % Immature Granulocytes 0.6 % (0-0.5); % Monocytes 2.7 % (1.7-9.3); % Neutrophils 93.6 % (42.2-75.2); Absolute Immature Granulocytes 0.1 10^3/uL (0-0.05); Absolute Lymphocytes 0.6 10^3/uL (1.2-3.4); Absolute Monocytes 0.6 10^3/uL (0.1-0.6); Absolute Neutrophils 19.2 10^3/uL (1.4-6.5); Hematocrit 35.6 % (37.0-47.0); Hemoglobin 11.3 g/dL (12.0-16.0); Mean Corp Hgb Conc. 31.7 g/dL (33.0-37.0); Mean Corpuscular Hgb 25.2 pg (27.0-31.0); Mean Corpuscular Volume 79.5 fL (81.0-99.0); Mean Platelet Volume 10.1 fL (7.4-10.4); Nucleated Red Blood Cells % 0 %; Platelet Count 334 10^3/uL (130-400); Red Blood Cell Count 4.48 10^6/uL (4.20-5.40); White Blood Cell Count 20.5 10^3/uL (4.8-10.8)
[2024-09-18 10:10] LABS: INR 0.96; PT 13.3 Sec (11.4-14.6)
[2024-09-18 10:56] LABS: AST (SGOT) 16 U/L (14-36); Albumin 4.1 g/dl (3.5-5.0); Alkaline Phosphatase 85 U/L (38-126); Blood Urea Nitrogen 19 mg/dl (7-17); Calcium 9.6 mg/dl (8.4-10.2); Carbon Dioxide 22 mmol/L (22-30); Chloride 109 mmol/L (98-107); Estimated Creatinine Clearance 81 ml/min; Glucose 203 mg/dl (70-99); Potassium 3.7 mmol/L (3.5-5.1); Sodium 140 mmol/L (135-145); Total Bilirubin 0.5 mg/dl (0.2-1.3); Total Protein 6.7 g/dl (6.3-8.2); eGFR > 60.00
[2024-09-18] MEDS: SOLU-MEDROL 258 MG IV (10:56)
--- NOTE | 2024-09-18 11:08 | W.PN.HOSP.TC ---
Addendum entered and electronically signed by Ricardo Walters MD 09/18/24 12:44:
#Subclinical hyperthyroidism vs low TSH induced by pulse steroids
TFT in 3-4 weeks
Original Note:
Today's Communication/Plan
-
LP
cont pulse steroids
Assessment / Plan
Assessment / Plan
54yo F with PMHX of headaches, that became constant after her head trauma when she fell backwards and hit her head years back. Since then she experienced constant sometimes severe pain over her temporal area radiating to her nose. She was diagnosed
with trigeminal neuralgia and started on Neurontin that was able to take the edge off the pain. She was followed by outpatient neurologist and had multiple botox injections due to concern for migraine, but without relief. Also saw
in [facility] for concerns of MS since her prior MRI brain showed some non-specific mild white matter changes. Patient also follows with basketball commentator for suspected Sjogrens and was started on HCQ on July 25 2024.
She started to experience blurry vision and pain with accommodation in her L eye appr 4 days before her presentation and on the day of admission noticed that her L pupil was larger. Given Methylprednisolone 1g in ED.
A/P:
#Anisocoria with blurry vision on R
#R/O MS flare, optic neuritis
#Intractable migraine with status migrainosus
Will arrange outpatient ophthalmology follow up: [facility] aware of the patient and will schedule appt early next week after patient d/c - aware - [email or web address]
ESR/CRP WNL
Can be side effect of HCQ - will discuss with basketball commentator if safe to stop, retinal exam upon d/c
Pulse steroids x5 days as per neuro
MRI brain and cervical spine as per neurologist: Subtle abnormal signal associated with the right optic nerve
f/u with subspecialist Dr. Faustin--[phone]
LP as per neurologist on 09/18/24
#Hx of vit D deficiency
#Hx of vit B12 deficiency
replete
#Sjogren
on recent new HCQ
cont outpatient f/u with
#LUIS 2/.2 heavy periods with dysmenorrhea due to perimenopause
outpatient [employer]
Iron IV
#leukocytosis
2/2 steroids
monitor
DVT ppx on hep
Full code
I have spent at least 39min reviewing chart, test results, communication with consultants and providing direct patient care
Anticipated Discharge: > 48 hours
Subjective/Interval History
-
Date of Service: September 18, 2024
Objective Data
-
Labs:
Laboratory Results
09/18/24
09:46
WBC 20.5 H
Hgb 11.3 L
Hct 35.6 L
Plt Count 334
PT 13.3
INR 0.96
Sodium 140
Potassium 3.7
Chloride 109 H
Carbon Dioxide 22
BUN 19 H
Creatinine 0.8
Glucose 203 H
Calcium 9.6
Total Bilirubin 0.5
AST 16
ALT Pending
Alkaline Phosphatase 85
Vital Signs:
Vital Signs
Temp Pulse Resp BP Pulse Ox
97.8 F 78 18 128/85 97
09/18/24 07:35 09/18/24 07:35 09/18/24 07:35 09/18/24 07:35 09/18/24 07:45
I&O
09/17/24 09/18/24 09/19/24
06:59 06:59 06:59
Intake Total 220 / 220 770 / 770
Balance 220 / 220 770 / 770
Review of Systems
-
History Source: Patient
All other systems: Reviewed and negative
EENT: Reports Blurry Vision (L eye)
Physical Exam
-
General: No Apparent Distress
HEENT: Normocephalic
Neuro: Awake, Alert, Oriented and AO x 3
Psych: Calm
[2024-09-18 12:27] LABS: ALT (SGPT) < 10 U/L (0-35)
[2024-09-18] MEDS: ATIVAN 1 MG PO (12:45)
--- NOTE | 2024-09-18 12:45 | CM ---
CM reviewed chart, patient seen bedside, reports no needs to CM at this time. Patient for LP today, remains on IV steroids. CM will continue to follow for all discharge planning needs.
Plan; return home with , will continue to follow medical progress
[2024-09-18 13:03] VITALS: BP 151/81; BP_SYST 84
[2024-09-18 14:28] VITALS: BP 147/73
[2024-09-18] MEDS: FERRLECIT 110 MG IV (14:40)
[2024-09-18 15:30] VITALS: BP 143/67
[2024-09-18 15:34] LABS: Spinal Fluid Glucose 94 mg/dl (40-70); Spinal Fluid Protein 72 mg/dl (12-60)
[2024-09-18 15:37] LABS: CSF Tube # 4
[2024-09-18 15:38] LABS: CSF Color Colorless; CSF Tube # Clarity Clear; Red Cell Count/CSF 2 mm^3; White Blood Cell Count/CSF 3 mm^3 (0-5)
[2024-09-18 15:39] LABS: CSF Clarity Clear; CSF Color Colorless; CSF Tube # 1; Red Cell Count/CSF 54 mm^3; White Cell Count/CSF 5 mm^3 (0-5)
[2024-09-18 18:56] LABS: Hepatitis B Surface Antibody Positive; Hepatitis C Antibody Negative (Negative)
[2024-09-18] MEDS: FEOSOL 325 MG PO (21:36)
[2024-09-18] MEDS: ZESTRIL 5 MG PO (21:37)
[2024-09-18 23:43] VITALS: BP 145/77
[2024-09-19 07:00] VITALS: BP 117/78
[2024-09-19 07:09] LABS: % Basophils 0.1 % (0-2); % Immature Granulocytes 1.1 % (0-0.5); % Lymphocytes 5.1 % (20.5-51.1); % Monocytes 3.7 % (1.7-9.3); Absolute Immature Granulocytes 0.2 10^3/uL (0-0.05); Absolute Lymphocytes 0.9 10^3/uL (1.2-3.4); Absolute Monocytes 0.6 10^3/uL (0.1-0.6); Absolute Neutrophils 15.2 10^3/uL (1.4-6.5); Hematocrit 35.7 % (37.0-47.0); Hemoglobin 11.1 g/dL (12.0-16.0); Mean Corp Hgb Conc. 31.1 g/dL (33.0-37.0); Mean Corpuscular Hgb 24.9 pg (27.0-31.0); Mean Corpuscular Volume 80.2 fL (81.0-99.0); Mean Platelet Volume 10.2 fL (7.4-10.4); Nucleated Red Blood Cells % 0 %; Platelet Count 307 10^3/uL (130-400); Red Blood Cell Count 4.45 10^6/uL (4.20-5.40); White Blood Cell Count 16.9 10^3/uL (4.8-10.8)
[2024-09-19] MEDS: PROTONIX 40 MG PO (08:20)
[2024-09-19] MEDS: VITAMIN D3 (cholecalciferol) 125 MCG PO (08:22)
[2024-09-19] MEDS: VITAMIN B-12 1000 MCG PO (08:22)
[2024-09-19] MEDS: NEURONTIN 300 MG PO (08:22)
[2024-09-19] MEDS: MIRALAX 17 GRAMS PO (08:27)
--- NOTE | 2024-09-19 08:59 | W.PN.NEURO.1 ---
Addendum entered and electronically signed by Ej Bustillo MD 09/19/24 16:22:
Studies reviewed.
I have personally examined the patient. I reviewed and agree with the DISABILITY RATER's Note.
My addenda:
Awake, alert, interactive. No acute distress.
Speech intact.No tremor.
Extra-ocular movements grossly intact.
Facial movements full and symmetric. Hearing intact to normal conversational volume.
Neck: full ROM.
Chest: no dyspnea
Heart: no JVD
Ext: (-) Clubbing, (-) Cyanosis, (-) Edema
IMPRESSIONS/RECOMMENDATIONS:
Abrupt onset of visual change in the left eye.
Differential diagnosis includes optic neuritis involving the left eye which is significantly improved since hospitalization
Complete fifth treatment with methylprednisolone
Continue newly initiated vitamin D2 and vitamin D3 with goal of vitamin D2 dosing weekly for 7 more doses and vitamin D3 to be utilized lifelong
Continue newly initiated vitamin B12
Provide iron routinely after IV iron provision
Changed gabapentin to pregabalin for improved head discomfort
Provide diphenhydramine as needed
D/W patient / family
Will continue to follow as outpatient.
Original Note:
Today's Communication / Plan
-
.
Neuro Assessment/Plan
Assessment
Acute onset left eye visual change
With prior history of mild MRI changes of the brain and intractable migraine. Differential diagnosis includes optic neuritis
Subtle right optic nerve signal enhancement on MRI brain imaging is somewhat supportive of an atypical demyelinating process; mogad, nmosd.
MRI brain 09/17/24: No acute infarct. Stable small volume white matter leukoaraiosis without enhancement. Nonspecific. Subtle abnormal signal associated with the right optic nerve. No nerve enlargement and no definitive enhancement. Possible
nonspecific inactive demyelination. No definitive or specific abnormality of the left orbital structures.
Cervical Spine MRI 09/17/24: No intrinsic cervical cord signal alteration or abnormal enhancement. Degenerative changes, as detailed above.
Plan
Outpatient neuroophthalmology evaluation, can return to previous Dr. Amador or Dr. Parth Lezama.
Provide additional high dose steroids as symptoms have improved, methylprednisolone 1 g IV for 5 days total (today is day 07/26); monitor for hypertension and hyperglycemia
Lumbar puncture preliminary results are unremarkable, will take days for additional results.
Start vitamin D as the patient had low levels previously.
Start vitamin B12 as the patient had low levels previously
Checking antibodies for neuromyelitis optica spectrum disorder and MOGAD
Changing gabapentin 300mg TID to pregabalin 100mg TID.
Okay to utilize Benadryl 25mg PRN HS for sleep, has not slept more than 3 hours in the past few days.
Will follow. Patient will also need to follow-up with Neurology as an outpatient.
Subjective/Objective
Subjective Data
Date of Service: September 19, 2024
Patient reports that last night her left eye returned to normal, now both eyes are equally slightly blurry, which is her baseline. She denies having any sharp pains behind her eye with reading anymore. She reports having an intermittent facial
flushing sensation just in the past day, she attributes this to the steroids. She denies any headache, dizziness, vision loss, speech/swallow difficulty, numbness, and weakness.
Objective Data
Vital Signs
Temp Pulse Resp BP Pulse Ox
97.9 F 80 18 117/78 94
09/19/24 07:00 09/19/24 07:00 09/19/24 07:00 09/19/24 07:00 09/19/24 07:00
Lab Results
09/19/24 06:23
09/18/24 09:46
PT 13.3 Sec (11.4-14.6) 09/18/24 09:46
INR 0.96 09/18/24 09:46
Sodium 140 mmol/L (135-145) 09/18/24 09:46
Potassium 3.7 mmol/L (3.5-5.1) 09/18/24 09:46
BUN 19 mg/dl (7-17) H 09/18/24 09:46
Glucose 203 mg/dl (70-99) H 09/18/24 09:46
Calcium 9.6 mg/dl (8.4-10.2) 09/18/24 09:46
Vitamin B12 Cancelled 09/17/24 09:21
Patient Allergies
No Known Allergies Allergy (Verified 03/22/21 02:30)
Review of Systems
-
History Source: Patient
EENT: Blurry Vision; Negative Decreased Vision or Swallowing Difficulty
Respiratory: Negative Cough or Trouble Breathing
Cardiac: Negative Chest Pain or Palpitations
Abdomen/GI: Negative Nausea or Vomiting
Skin: Rash (chest/neck redness)
Neuro: Negative Dizzy, Headache, Weakness, Numbness, Ataxia or Speech Problem
Physical Exam
-
General: Well Developed, Well Nourished and No Apparent Distress
Eyes: No Ptosis and PERRLA
HEENT: Normocephalic and Atraumatic
Neck: Full Range of Motion
Respiratory: No Dyspnea
GI: Non-distended
Skin: Rash (chest/neck redness)
Extremities: No Clubbing, No Cyanosis and No Edema
Psych: Unremarkable
Extended Neurological Exam
Mood & Affect: Mood Unremarkable and Affect Unremarkable
Attention Span & Concentration: Awake, Alert and Interactive
Memory: Unremarkable and Able to Recall
Tremor: Hand Tremor Absent and Head Tremor Absent
Involuntary Movement: None
Speech: Quality Unremarkable, Quantity Unremarkable and Rate of Production Unremarkable
Cranial Nerve II: Left Eye: Pupillary Reactivity Unremarkable, Pupillary Size Unremarkable and Visual Ramirez Intact
Cranial Nerve II: Right Eye: Pupillary Reactivity Unremarkable, Pupillary Size Unremarkable and Visual Ramirez Intact
Cranial Nerves III, IV, : Extraocular Movement: Extraocular Movement Full in all Directions
Cranial Nerve VII: Facial Symmetry: Normal Facial Symmetry
Cranial Nerve VIII: Hearing: Unremarkable Hearing to Normal Conversational Volume
Cranial Nerves IX, X: Palate Movement: Palate Elevation Symmetric
Cranial Nerve XI: Shoulder Shrug: Unremarkable
Cranial Nerve XII: Tongue Protusion: Midline
Muscle Strength, Overall: Full Throughout
Muscle Bulk & Tone: Bulk Unremarkable and Tone Unremarkable
Pronator Drift: No Drift in Upper Extremities and No Drift in Lower Extremities
Coordination: Pycxvo-[id number]-ypwsiy Testing Unremarkable
Data Reviewed
-
MRI Head: Report Reviewed and Image Reviewed
MRI Cervical Spine: Report Reviewed and Image Reviewed
Medical Test Reports: Report Reviewed (lumbar puncture)
Labs: Report Reviewed
Reviewed with: Physician, Patient and Family
Medications
-
Active Medications
Generic Name Dose Route Start Last Admin
Trade Name Freq PRN Reason Stop Dose Admin
Acetaminophen 650 mg 09/16/24 23:29
Acetaminophen 325 Mg Tablet PO 10/14/24 23:28
Q4HPRN PRN
mild pain/PERKINS/temp> 100.4F
Bisacodyl 10 mg 09/16/24 23:29
Bisacodyl 10 Mg Rectal Suppository RECTAL 10/14/24 23:28
[id number] PRN
constipation
Cholecalciferol 125 mcg 09/17/24 10:30 09/19/24 08:22
Cholecalciferol (Vitamin D3) 125 Mcg Tablet (5,000 Units) PO 10/15/24 10:29 125 mcg
DAILY RACHEL Administration
Cyanocobalamin 1,000 mcg 09/17/24 11:00 09/19/24 08:22
Cyanocobalamin 1,000 Mcg Tablet PO 10/15/24 10:59 1,000 mcg
DAILY RACHEL Administration
Diphenhydramine HCl 25 mg 09/19/24 09:13
Diphenhydramine 50 Mg Capsule PO 10/17/24 09:12
HSPRN PRN
insomnia
Docusate Sodium 100 mg 09/18/24 08:20
Docusate Sodium 100 Mg Capsule PO 10/16/24 08:19
BIDPRN PRN
no BM > 24 hours
Ergocalciferol 50,000 units 09/17/24 10:00 09/17/24 11:22
Ergocalciferol (Vitamin D-2) 31429 Units Capsule PO 10/15/24 09:59 50,000 units
Q7D RACHEL Administration
Ferrous Sulfate 325 mg 09/18/24 22:00 09/18/24 21:36
Ferrous Sulfate 325 Mg Tablet PO 10/16/24 21:59 325 mg
HS RACHEL Administration
Methylprednisolone Sodium 258 mls @ 258 mls/hr 09/17/24 11:00 09/18/24 10:56
Succinate 1,000 mg/ Sodium IV 09/20/24 11:59 258 mls
Chloride Q24H RACHEL Administration
Ferric Sodium Gluconate 110 mls @ 110 mls/hr 09/17/24 14:00 09/18/24 14:40
Complex 125 mg/ Sodium IV 09/21/24 14:59 110 mls
Chloride DAILY@1400 RACHEL Administration
Lisinopril 5 mg 09/18/24 22:00 09/18/24 21:37
Lisinopril 5 Mg Tablet PO 10/16/24 21:59 5 mg
HS RACHEL Administration
Lorazepam 1 mg 09/18/24 09:18 09/18/24 12:45
Lorazepam 1 Mg Tablet PO 10/16/24 09:17 1 mg
ONCE PRN Administration
LUMBAR PUNCTURE
Ondansetron HCl 4 mg 09/16/24 23:29
Ondansetron 4 Mg/2 Ml Vial IV 10/14/24 23:28
Q6HPRN PRN
nausea and vomiting
Pantoprazole Sodium 40 mg 09/19/24 08:00 09/19/24 08:20
Pantoprazole 40 Mg Delayed Release Tablet PO 10/17/24 07:59 40 mg
DAILY RACHEL Administration
Polyethylene Glycol 17 grams 09/16/24 23:29 09/19/24 08:27
Polyethylene Glycol Powder 17 Grams Packet PO 10/14/24 23:28 17 grams
DAILYPRN PRN Administration
constipation
Pregabalin 100 mg 09/19/24 16:00
Pregabalin 100 Mg Capsule PO 10/17/24 15:59
TID RACHEL
Senna/Docusate Sodium 1 tablet 09/16/24 23:29
Docusate W/Senna (Melyssa-Colace) Tablet PO 10/14/24 23:28
BIDPRN PRN
constipation
Sodium Chloride 0 flush 09/16/24 22:00 09/16/24 22:11
Sodium Chloride 0.9% (Flush) Syringe IV 10/14/24 21:59 1 flush
PER PROTOCOL RACHEL Administration
Home Medications
�Medication �Instructions �Recorded
gabapentin 300 mg capsule 300 mg PO TID Neurological 09/17/24
(Neurontin) Condition
hydroxychloroquine 100 mg tablet 100 mg PO DAILY Autoimmune Disorder 09/17/24
lisinopril 5 mg tablet 5 mg PO QHS Blood Pressure 09/17/24
[2024-09-19 09:45] VITALS: BP 126/66; PULSE 75; O2SAT 96
--- NOTE | 2024-09-19 09:59 | PTOTSP ---
Pt presents to OT with grossly intact cognition, UB ROM, strength and sensation is WFL, and vision is back to 'blurry' baseline. L pupil noted to be slightly larger than R. Mild horizontal nystagmus noted during saccades and L eye does not fully
converge. Pt is currently at independent level with ADLs, transfers and functional mobility in room and bathroom without AD. Reports vision is back to baseline. No further skilled OT indicated at this time.
[2024-09-19] MEDS: SOLU-MEDROL 258 MG IV (10:49)
--- NOTE | 2024-09-19 11:45 | W.PN.HOSP.TC ---
Today's Communication/Plan
-
complete steroids in AM and dc
symptoms resolved
Assessment / Plan
Assessment / Plan
54yo F with PMHX of headaches, that became constant after her head trauma when she fell backwards and hit her head years back. Since then she experienced constant sometimes severe pain over her temporal area radiating to her nose. She was diagnosed
with trigeminal neuralgia and started on Neurontin that was able to take the edge off the pain. She was followed by outpatient neurologist and had multiple botox injections due to concern for migraine, but without relief. Also saw
in [facility] for concerns of MS since her prior MRI brain showed some non-specific mild white matter changes. Patient also follows with counselor manager for suspected Sjogrens and was started on HCQ on July 25 2024.
She started to experience blurry vision and pain with accommodation in her L eye appr 4 days before her presentation and on the day of admission noticed that her L pupil was larger. Started Methylprednisolone 1g x5 days and stop as per neurologist.
Provided referral to neuroophthalmologist by neurologist. Already has appt with S[employer]ER next month - advised to discuss TV US.
A/P:
#Anisocoria with blurry vision on R
#R/O MS flare, optic neuritis
#Intractable migraine with status migrainosus
Will arrange outpatient ophthalmology follow up: [facility] aware of the patient and will schedule appt early next week after patient d/c - aware - [email or web address]
ESR/CRP WNL
Can be side effect of HCQ - will discuss with counselor manager if safe to stop, retinal exam upon d/c
Pulse steroids x5 days as per neuro
MRI brain and cervical spine as per neurologist: Subtle abnormal signal associated with the right optic nerve
f/u with subspecialist Dr. Faustin--[phone]
LP as per neurologist on 09/18/24
#Hx of vit D deficiency
#Hx of vit B12 deficiency
replete
#Sjogren
on recent new HCQ
cont outpatient f/u with
#LUIS 2/.2 heavy periods with dysmenorrhea due to perimenopause
outpatient [employer]
Iron IV
#leukocytosis
2/2 steroids
monitor
DVT ppx on hep
Full code
I have spent at least 39min reviewing chart, test results, communication with consultants and providing direct patient care
Anticipated Discharge: Within 24 hours
Subjective/Interval History
-
Date of Service: September 19, 2024
Objective Data
-
Labs:
Laboratory Results
09/19/24
06:23
WBC 16.9 H
Hgb 11.1 L
Hct 35.7 L
Plt Count 307
Vital Signs:
Vital Signs
Temp Pulse Resp BP Pulse Ox
97.9 F 80 18 117/78 94
09/19/24 07:00 09/19/24 07:00 09/19/24 07:00 09/19/24 07:00 09/19/24 07:00
I&O
09/18/24 09/19/24 09/20/24
06:59 06:59 06:59
Intake Total 770 / 770 1715 / 1715
Balance 770 / 770 1715 / 1715
Review of Systems
-
History Source: Patient
All other systems: Reviewed and negative
Physical Exam
-
General: No Apparent Distress and Comfortable
HEENT: Normocephalic
Respiratory: Clear to Auscultation
GI: Soft, Nontender and Nondistended
Musculoskeletal: No Clubbing, No Cyanosis and No Edema
Neuro: Awake, Alert, Oriented, AO x 3, No Motor Deficits and No Sensory Deficits
Psych: Calm
--- NOTE | 2024-09-19 11:52 | CM ---
Chart reviewed: possible discharge to home tomorrow; symptoms resolved; no skilled OT needs
[2024-09-19] MEDS: FERRLECIT 110 MG IV (14:04)
[2024-09-19] MEDS: TYLENOL 650 MG PO (14:08)
[2024-09-19 15:00] VITALS: BP 123/87
[2024-09-19] MEDS: LYRICA 100 MG PO ×2 (16:48→21:43)
[2024-09-19] MEDS: ZESTRIL 5 MG PO (21:43)
[2024-09-19] MEDS: BENADRYL 25 MG PO (21:50)
[2024-09-19] MEDS: FEOSOL 325 MG PO (21:50)
[2024-09-19 23:55] VITALS: BP 126/71
[2024-09-20 07:30] VITALS: BP 132/70
[2024-09-20] MEDS: VITAMIN D3 (cholecalciferol) 125 MCG PO (09:08)
[2024-09-20] MEDS: LYRICA 100 MG PO (09:08)
[2024-09-20] MEDS: PROTONIX 40 MG PO (09:08)
[2024-09-20] MEDS: VITAMIN B-12 1000 MCG PO (09:08)
[2024-09-20] MEDS: SOLU-MEDROL 258 MG IV (09:08)
--- NOTE | 2024-09-20 10:00 | W.PN.HOSP.TC ---
Today's Communication/Plan
-
DC
Assessment / Plan
Assessment / Plan
54yo F with PMHX of headaches, that became constant after her head trauma when she fell backwards and hit her head years back. Since then she experienced constant sometimes severe pain over her temporal area radiating to her nose. She was diagnosed
with trigeminal neuralgia and started on Neurontin that was able to take the edge off the pain. She was followed by outpatient neurologist and had multiple botox injections due to concern for migraine, but without relief. Also saw
in [facility] for concerns of MS since her prior MRI brain showed some non-specific mild white matter changes. Patient also follows with cost estimating engineer for suspected Sjogrens and was started on HCQ on July 25 2024.
She started to experience blurry vision and pain with accommodation in her L eye appr 4 days before her presentation and on the day of admission noticed that her L pupil was larger. Started Methylprednisolone 1g x5 days and stop as per neurologist.
Provided referral to neuroophthalmologist by neurologist. Already has appt with [facility] next month - advised to discuss TV US. Advised to repeat TSH in 2-3 weeks
A/P:
#Anisocoria with blurry vision on R
#R/O MS flare, optic neuritis
#Intractable migraine with status migrainosus
Will arrange outpatient ophthalmology follow up: [facility] aware of the patient and will schedule appt early next week after patient d/c - aware - [email or web address]
ESR/CRP WNL
Can be side effect of HCQ - will discuss with cost estimating engineer if safe to stop, retinal exam upon d/c
Pulse steroids x5 days as per neuro
MRI brain and cervical spine as per neurologist: Subtle abnormal signal associated with the right optic nerve
f/u with subspecialist Dr. Faustin--[phone]
LP as per neurologist on 09/18/24
#Hx of vit D deficiency
#Hx of vit B12 deficiency
replete
#Sjogren
on recent new HCQ
cont outpatient f/u with
#LUIS 2/.2 heavy periods with dysmenorrhea due to perimenopause
outpatient [facility]
Iron IV
#Supressed TSH
FT4 WNL
suspect 2/2 steroids
Patient with normal TSH on outpatient w/u 3 mo ago (from patients words)
Repeat TSH in 2-3 weeks
#leukocytosis
2/2 steroids
monitor
DVT ppx on hep
Full code
I have spent at least 39min reviewing chart, test results, communication with consultants and providing direct patient care
Anticipated Discharge: Today
Subjective/Interval History
-
Date of Service: September 20, 2024
Objective Data
-
Vital Signs:
Vital Signs
Temp Pulse Resp BP Pulse Ox
97.9 F 57 16 132/70 96
09/20/24 07:30 09/20/24 07:30 09/20/24 07:30 09/20/24 07:30 09/20/24 07:30
I&O
09/19/24 09/20/24 09/21/24
06:59 06:59 06:59
Intake Total 1715 / 1715 840 / 840
Balance 1715 / 1715 840 / 840
Review of Systems
-
History Source: Patient
All other systems: Reviewed and negative
Physical Exam
-
General: Well Nourished and No Apparent Distress
Neuro: Awake, Alert, Oriented and AO x 3
Psych: Calm
--- NOTE | 2024-09-20 10:09 | W.DCSUMMARY ---
Discharge Summary
Discharge Data
Date of Admission: 09/17/24
Date of Discharge: 09/20/24
-
Pending Results: Yes
Additional Pending Results:
CSF studies
Hospital Course
54yo F with PMHX of headaches, that became constant after her head trauma when she fell backwards and hit her head years back. Since then she experienced constant sometimes severe pain over her temporal area radiating to her nose. She was diagnosed
with trigeminal neuralgia and started on Neurontin that was able to take the edge off the pain. She was followed by outpatient neurologist and had multiple botox injections due to concern for migraine, but without relief. Also saw
in [facility] for concerns of MS since her prior MRI brain showed some non-specific mild white matter changes. Patient also follows with customer service sales consultant for suspected Sjogrens and was started on HCQ on July 25 2024.
She started to experience blurry vision and pain with accommodation in her L eye appr 4 days before her presentation and on the day of admission noticed that her L pupil was larger. Started Methylprednisolone 1g x5 days and stop as per neurologist.
Provided referral to neuroophthalmologist by neurologist. Already has appt with [employer] MEMBER next month - advised to discuss TV US. Advised to repeat TSH in 2-3 weeks.
Neurontin switched to Pregabalin, HCQ stopped - patient to follow with upon d/c. With recent visual symptoms - reasonable to stay off work for 3 more days and return if no new symptoms develop
I have spent at least 39min reviewing chart, test results, communication with consultants and providing direct patient care
Patient was managed for:
#Anisocoria with blurry vision on R
#R/O MS flare, optic neuritis
#Intractable migraine with status migrainosus
#Hx of vit D deficiency
#Hx of vit B12 deficiency
#Sjogren
#LUIS 2/.2 heavy periods with dysmenorrhea due to perimenopause
#Supressed TSH
#leukocytosis
Discharge Plan
-
Activity Restrictions/Additional Instructions:
return to previous Dr. Amador or Dr. Parth Lezama.
Follow up with customer service sales consultant Dr.QUinn MCCLENDON
Referrals:
Ej Bustillo MD [Active, Neurology] - in two to four weeks
Zahra Palencia NP [Family Provider] - in four to six weeks
Referral Note: DEXA scan
Pamela Herrera MD [Active, Ophthalmology]
Referral Note: outpatient ophthalmology follow up: [facility] aware of the patient and will schedule appt early next week after patient d/c - aware - [email or web address]
Prescriptions:
New
cyanocobalamin (vitamin B-12) [Vitamin B-12] 1,000 mcg Tablet
1,000 mcg PO DAILY Qty: 30 0RF
ferrous sulfate [FeroSul] 325 mg (65 mg iron) Tablet
325 mg PO HS Qty: 30 0RF
ergocalciferol (vitamin D2) [Vitamin D2] 1,250 mcg (50,000 unit) Capsule
50,000 unit PO Q7D Qty: 6 0RF
pregabalin 100 mg Capsule
100 mg PO TID Qty: 90 0RF
cholecalciferol (vitamin D3) 125 mcg (5,000 unit) Tablet
125 mcg PO DAILY Qty: 30 0RF
bisacodyl 5 mg tablet
10 mg PO ONCE PRN (Reason: Constipation) Qty: 30 0RF
Continued
lisinopril 5 mg Tablet
5 mg PO QHS
Discontinued
gabapentin [Neurontin] 300 mg Capsule
300 mg PO TID
hydroxychloroquine 100 mg Tablet
100 mg PO DAILY
Discharge Orders:
Discharge Patient (As Directed); Ordered 09/20/24
Ordered By: Ricardo Walters
Discharge Date and Time
Print Language: GEORGIAN
--- NOTE | 2024-09-20 10:10 | CM ---
Chart reviewed. Patient d/c today
No CM needs identified at this time
Plan: Home, no needs
[2024-09-20] MEDS: FERRLECIT 110 MG IV (10:48)
[2024-09-20 12:47] VITALS: BP 147/82
[2024-09-20 15:01] LABS: Hepatitis D Antibody Negative (Negative)
[2024-09-21 00:02] LABS: C.neoformans Antigen Negative (Negative)
[2024-09-21 10:53] LABS: CSF VDRL (T. pallidum) Non Reactive (Non Reactive)
[2024-09-21 10:56] LABS: Lyme Disease DNA by PCR Not Detected; Lyme Source Serum
[2024-09-21 16:46] LABS: Paraneoplastic Ab IgG, CSF None Detected (None Detected)
[2024-09-22 09:46] LABS: Albumin Index 6.8 ratio (0.0-9.0); Albumin, CSF 25 mg/dL (0-35); Albumin, Serum 3676 mg/dL (3500-5200); CSF IgG Synthesis Rate 3.7 mg/d (<=8.0); CSF IgG/Albumin Ratio 0.16 ratio (0.09-0.25); CSF Oligoclonal Bands Negative (Negative); CSF Oligoclonal Bands Number Matching Bands (0-1); IgG 841 mg/dL (768-1632); IgG, CSF 3.9 mg/dL (0.0-6.0)
[2024-09-22 19:52] LABS: Myelin Basic Protein, CSF 1.54 ng/mL (0.00-5.50)
== END 2024-09-20 14:31 | disposition home or self-care (01) | DRG 123 ==
LOC: 4 WEST ACU 10:03
PROVIDERS: Radiology Diagnostic Radiology; ADMITTING PHYSICIAN Internal Medicine; ATTENDING PHYSICIAN Internal Medicine; CONSULT PHYSICIAN Psychiatry & Neurology Neurology; EMERGENCY PHYSICIAN Student in an Organized Health Care Education/Training Program; FAMILY PHYSICIAN Nurse Practitioner Family
PROC: 009U3ZX Drainage of Spinal Canal, Percutaneous Approach, Diagnostic (ICD-10-PCS; 2024-09-18)
PROC: B01B1ZZ Fluoroscopy of Spinal Cord using Low Osmolar Contrast (ICD-10-PCS; 2024-09-18)
DX: H57.02 Anisocoria (principal); H46.9 Unspecified optic neuritis; G50.0 Trigeminal neuralgia; M35.00 Sjogren syndrome, unspecified
CPT/HCPCS: 62328; 70450; 70553; 72156; 80048; 80053; 82040; 82042; 82607; 82728; 82746; 82784; 82945; 83540; 83550; 83735; 83873; 83916; 84157; 84439; 84443; 85025; 85027; 85610; 85652; 86140; 86255; 86592; 86692; 86706; 86803; 87015; 87070; 87205; 87327; 87476; 88108; 89051; 96374; 97165; 99284; A9575; J2916

== ENCOUNTER → 2025-04-22 06:30 | Outpatient (REF) | payer BC, SELFPAY ==
[2025-04-22 08:40] LABS: Hematocrit 43.2 % (37.0-47.0); Hemoglobin 14.0 g/dL (12.0-16.0); Mean Corp Hgb Conc. 32.4 g/dL (33.0-37.0); Mean Corpuscular Volume 88.2 fL (81.0-99.0); Nucleated Red Blood Cells % 0 %; Platelet Count 280 10^3/uL (130-400); Red Cell Dist. Width 12.4 % (11.5-14.5)
[2025-04-22 08:59] LABS: C-Reactive Protein < 5.00 mg/L (0.0-10.00)
[2025-04-22 09:05] LABS: ALT (SGPT) 16 U/L (0-35); AST (SGOT) 18 U/L (14-36); Albumin 4.6 g/dl (3.5-5.0); Alkaline Phosphatase 100 U/L (38-126); Blood Urea Nitrogen 17 mg/dl (7-17); Calcium 9.4 mg/dl (8.4-10.2); Carbon Dioxide 25 mmol/L (22-30); Chloride 104 mmol/L (98-107); Glucose 94 mg/dl (70-99); Potassium 4.7 mmol/L (3.5-5.1); Sodium 136 mmol/L (135-145); Total Protein 7.2 g/dl (6.3-8.2); eGFR > 60.00
[2025-04-22 09:48] LABS: Vitamin B12 289 pg/ml (239-931)
== END ==
LOC: REG 06:30
PROVIDERS: ATTENDING PHYSICIAN Internal Medicine; FAMILY PHYSICIAN Internal Medicine; OTHER PHYSICIAN Registered Nurse Critical Care Medicine
DX: M35.9 Systemic involvement of connective tissue, unspecified (principal); M06.4 Inflammatory polyarthropathy; Z51.81 Encounter for therapeutic drug level monitoring; E55.9 Vitamin D deficiency, unspecified
CPT/HCPCS: 36415; 80053; 82607; 82652; 84443; 85025; 85652; 86140